=== PATIENT | female | born 1955 | race Caucasian/White ===

== ENCOUNTER 2017-12-15 14:07 | Inpatient (IN) | payer OTHER, SELFPAY ==
[2017-12-15] MEDS ORDERED: ISOVUE-370 76%-LOCM 1 ML ONE (14:19)
[2017-12-15] MEDS ORDERED: hydrOXYzine Pamoate 25 mg Capsule ONE (15:54)
[2017-12-15 16:33] LABS: ALT (SGPT) 21 U/L (8-55); AST (SGOT) 27 U/L (5-34); Albumin 3.4 g/dL (3.4-4.8); Alkaline Phosphatase 114 U/L (40-150); Anion Gap 12 mmol/L (10-20); BUN (Urea Nitrogen) 18 mg/dL (9.8-20.1); Bilirubin, Total 0.4 mg/dL (0.2-1.2); Calc. Creatinine Clearance 0 mL/min (70-130); Calcium 8.8 mg/dL (7.8-10.44); Carbon Dioxide 25 mmol/L (23-31); Chloride 106 mmol/L (98-107); Estimated GFR-MDRD Greater than 90; Globulin 2.3 g/dL (2.4-3.5); Glucose 91 mg/dL (80-115); Potassium 4.3 mmol/L (3.5-5.1); Protein, Total 5.7 g/dL (6.0-8.3); Sodium 139 mmol/L (136-145)
[2017-12-15 16:37] LABS: CKMB 2.5 ng/mL (0-6.6)
--- NOTE | 2017-12-15 17:02 | RAD ---
AP VIEW OF THE CHEST 12/15/17 INDICATION: High blood pressure. COMPARISON: None. FINDINGS: There is moderate sized cardiomegaly. There is pulmonary vascular congestion and interstitial edema. No definite pleural effusion or pneumothorax is evident. There is surgical clips within the left uppe r quadrant of the abdomen. No acute osseous abnormality is evident. IMPRESSION: Findings suggesting mild CHF. POS: [facility]
[2017-12-15 18:20] LABS: #Basophils 0.1 thou/uL (0.0-0.2); #Eosinphils 0.1 thou/uL (0.0-0.7); #Lymphocytes 2.5 thou/uL (1.20-3.40); #Monocytes 0.6 thou/uL (0.11-0.59); #Neutrophils 2.4 thou/uL (1.40-6.50); %Basophils 1.4 % (0.0-1.0); %Eosinophils 2.1 % (0.0-10.0); %Lymphocytes 43.2 % (21.0-51.0); %Monocytes 10.5 % (0.0-10.0); %Neutrophils 42.8 % (42.0-75.0); Hemoglobin 5.8 g/dL (12.0-16.0); Mean Corpuscular HGB CONC 27.5 g/dL (32.0-36.0); Mean Corpuscular Volume 58.1 fl (81.0-99.0); Mean Platelet Volume 5.7 fL (7.4-10.4); Platelet Count 285 thou/uL (130-400); RBC Distribution Width 21.2 % (11.5-14.5); Red Blood Cell (RBC) Count 3.64 mill/uL (4.20-5.40); White Blood Cell (WBC) Count 5.7 thou/uL (4.8-10.8)
[2017-12-15 18:35] LABS: Bilirubin Negative (Negative); Blood, Urine Negative (Negative); Clarity CLEAR (Clear); Glucose, Urine (Dipstick) Negative (Negative); Leukocyte Small (Negative); Nitrite Negative (Negative); Protein, Urine (Dipstick) Negative (Neg-Trace); Specific Gravity, Urine 1.011 (1.002-1.036); Urobilinogen 0.2 mg/dL (0.2-1.0); pH, Urine 7.5 (5.0-9.0)
[2017-12-15 18:36] LABS: Bacteria/HPF None Seen HPF (None Seen); Hyaline Casts/LPF 0-3 HYALINE CAST LPF (0-3 Hyaline); RBC/HPF 0-3 HPF (0-3); Squamous Epithelial 0-3 HPF (0-3)
[2017-12-15 18:39] LABS: Free T4 (Free Thyroxine) 1.84 ng/dL (0.70-1.48)
[2017-12-15 18:48] LABS: INR-International Normal Ratio 1.2
--- NOTE | 2017-12-15 19:48 | CT ---
EXAM: CT ANGIOGRAM OF THE CHEST 12/15/17 HISTORY: Dyspnea. Anxiety. Frequent panic attacks. Increased stress at work and home. COMPARISON: None. TECHNIQUE: CT angiogram of the chest is performed in the axial plane. Bilateral oblique and coronal three dimens ional reformatted image are submitted for interpretation. FINDINGS: No mediastinal mass, lymphadenopathy, or hematoma. Heart is enlarged. No significant pericardial flui d. There are coronary calcifications. The thoracic aorta and upper abdominal aorta have an overall no rmal caliber. No periaortic fat stranding. Trachea and central bronchi are patent. Dependent atelectatic changes are identified. No mass. no con solidation. Calcified granuloma of the left lower lobe is noted. No pneumothorax or osseous abnormali ties. Visualized upper solid organs have appropriate arterial phase enhancement. Previous bariatric s urgical changes noted. Adequate contrast opacification of the pulmonary arterial system to the level of the segmental arteri es. No filling defect to suggest thromboembolism. IMPRESSION: No evidence of pulmonary artery embolism to the level of the segmental arteries. POS: [facility]
[2017-12-15] MEDS ORDERED: Ondansetron ODT 4 MG TAB SL PRN (22:31)
[2017-12-15] MEDS ORDERED: Acetaminophen 325 MG TAB PO PRN (22:31)
[2017-12-15] MEDS ORDERED: Ondansetron HCl/PF 4 MG/2 ML Vial IVP PRN (22:31)
[2017-12-15 22:46] VITALS: BMI 28.0
[2017-12-16 06:24] LABS: Anion Gap 9 mmol/L (10-20); BUN (Urea Nitrogen) 15 mg/dL (9.8-20.1); Calc. Creatinine Clearance 110 mL/min (70-130); Calcium 8.8 mg/dL (7.8-10.44); Carbon Dioxide 24 mmol/L (23-31); Chloride 109 mmol/L (98-107); Estimated GFR-MDRD Greater than 90; Glucose 102 mg/dL (80-115); Potassium 4.2 mmol/L (3.5-5.1); Sodium 138 mmol/L (136-145)
[2017-12-16 06:45] LABS: #Basophils 0.1 thou/uL (0.0-0.2); #Eosinphils 0.2 thou/uL (0.0-0.7); #Lymphocytes 2.1 thou/uL (1.20-3.40); #Monocytes 0.7 thou/uL (0.11-0.59); #Neutrophils 2.2 thou/uL (1.40-6.50); %Basophils 1.8 % (0.0-1.0); %Eosinophils 3.3 % (0.0-10.0); %Lymphocytes 40.2 % (21.0-51.0); %Monocytes 12.7 % (0.0-10.0); %Neutrophils 42.1 % (42.0-75.0); Anisocytosis MARKED = >30 cells (100X) (0-5/hpf); Elliptocytes SLIGHT = 2-5 cells (100X) (0-1/hpf); Hemoglobin 7.5 g/dL (12.0-16.0); Hypochromia MODERATE=16-30 cells (100X) (0-5/hpf); MDiff Complete? YES; Mean Corpuscular HGB CONC 29.2 g/dL (32.0-36.0); Mean Corpuscular Hemoglobin 18.8 pg (27.0-31.0); Mean Corpuscular Volume 64.4 fl (81.0-99.0); Mean Platelet Volume 5.2 fL (7.4-10.4); Microcytosis MODERATE=15-30 cells (100X) (0-5/hpf); PLT Morphology Comment Appears Adequate; Platelet Count 225 thou/uL (130-400); RBC Distribution Width 27.4 % (11.5-14.5); Red Blood Cell (RBC) Count 3.98 mill/uL (4.20-5.40); Reflex for Review?? YES; Tear Drops SLIGHT = 2-5 cells (100X) (0-1/hpf); White Blood Cell (WBC) Count 5.3 thou/uL (4.8-10.8)
--- NOTE | 2017-12-16 08:25 | HP ---
PRIMARY CARE DOCTOR: No primary care doctor. TIME OF EVALUATION: 10:00 p.m. CODE STATUS: FULL CODE. CHIEF COMPLAINT: Shortness of breath. HISTORY OF PRESENT ILLNESS: This is a 62-year-old female patient with past medical history of chronic anemia, gastric bypass surgery, hypertension, came to the hospital after having moderate on and off gradually worsening shortness of breath, exacerbated with exertion, improve with rest, symptoms have been present for the past few weeks, getting worse in the last few days. REVIEW OF SYSTEMS: Constitutional: No fever or chills. Patient reported generalized weakness and fatigue. Respiratory: No cough or sputum production. Patient did have shortness of breath. Cardiovascular: No chest pain, palpitations. She did report exertional shortness of breath. Gastrointestinal : No nausea, vomiting, diarrhea. No blood in the stools. No abdominal pain. Central Nervous System: No dizziness, headache. The patient was feeling lightheaded. Genitourinary: No burning on urination. Extremities: No leg swelling. All other systems were reviewed and were negative except for the findings mentioned above. PAST MEDICAL HISTORY: Please see HPI. SOCIAL HISTORY: The patient lives with family. PAST SURGICAL HISTORY: Gastric bypass. PSYCHIATRIC HISTORY: No previous psychiatric history. SOCIAL HISTORY: Drug use in the past including marijuana, methamphetamine, cigarettes. KNOWN ALLERGIES: SULFA. REPORTED MEDICATIONS: No medications. PHYSICAL EXAMINATION: VITAL SIGNS: On presentation, the patient had a blood pressure 166/83 with a heart rate 89, respiratory rate was 12, temperature 98.8, pain 0, oxygen saturation 100 on room air. GENERAL: Alert, oriented, no acute distress. HEENT: Eye, normal conjunctivae. Moist oral mucosa. NECK: No JVD. RESPIRATORY: Bilateral air entry. No rales, no wheezing. Symmetric expansion. CARDIOVASCULAR: Normal rate and rhythm, no murmurs, no gallop. No edema. ABDOMEN: Soft, normal bowel sounds. MUSCULOSKELETAL: . No tenderness. SKIN: Warm, intact. No pallor, rash or redness. NEUROLOGIC: Baseline mental status. No evidence of any focal weakness. Speech is at baseline. Cranial nerves sensory intact. PSYCHIATRIC: Good mood, no anxiety, oriented, optimal judgment. LABORATORY DATA: Labs were reviewed. The patient had white count 5.7, hemoglobin 5.8, MCV 58.1, platelet count 285. PT 15, INR 1.2, PTT 26. D-dimer is 0.64. Chemistry was reviewed. The patient has sodium 139, potassium 4.3, chloride 106, carbon dioxide 25, anion gap 12, BUN 18, creatinine 0.6, GFR greater than 90. Troponin I 0.010. Beta natriuretic peptide 1203. Serum total protein 5.7, albumin 3.4, globulin 2.3, albumin globulin ratio 1.5. Free T4 1.84, Free T3 4.69. TSH 0.0025. Chest x-ray was reviewed and patient has findings suggestive of mild CHF. The chest thorax CTA was done and reviewed. The patient has no evidence of pulmonary artery embolism to the level of the segmental arteries. ASSESSMENT AND PLAN: 1. The patient presented with severe acute on chronic anemia. The patient has a hemoglobin of 5.8, hematocrit 21.1. The patient receiving blood transfusion, she reported that this problem is chronic. She has never been diagnosed with any previous disease, given low MCV , it seems to be a mixed picture of iron deficiency and possible thalassemia. Further workup can be done as outpatient, patient had transfusion already. 2. Positive D-dimer 0.64. CT angio was negative, PE was ruled out. 3. Elevated beta natriuretic peptide 1203, this can be secondary to severe anemia given heart failure, uncontrolled hypertension. The systolic blood pressure 166/83, patient did not report any history of hypertension, we will monitor as inpatient. 4. Possible primary hyperthyroidism with a low TSH and elevated T3, T4, Thyroid ultrasound was ordered, further studies can be planned can be done as outpatient, patient is asymptomatic at this point. 5. Deep venous thrombosis prophylaxis. MTDD
--- NOTE | 2017-12-16 11:53 | PDOC.PN ---
- Subjective Encounter Start Date: 12/16/17 Encounter Start Time: 11:00 Subjective: wants to know results of tests, still sob - Objective Resuscitation Status: Resuscitation Status FULL:Full Resuscitation MAR Reviewed: Yes Vital Signs & Weight: Vital Signs (12 hours) Temp Pulse Pulse Resp BP BP Pulse Ox 12/16/17 08:20 98.4 F 87 18 164/80 H 98 12/16/17 04:45 97.9 F 86 16 156/87 H 99 12/16/17 02:25 97.6 F 85 16 147/65 H 99 12/16/17 02:04 97.9 F 104 H 16 130/65 I&O: 12/15/17 12/16/17 12/17/17 06:59 06:59 06:59 Intake Total 990 Output Total 1000 Balance -10 Result Diagrams: 12/16/17 05:53 12/16/17 05:53 Radiology Reviewed by me: Yes Phys Exam - Physical Examination anxious but coherent exopthalmous Neck: supple, full ROM Respiratory: clear to auscultation bilateral Cardiovascular: RRR 3/6 ALEJANDRA Gastrointestinal: soft, non-tender Musculoskeletal: no edema, pulses present Neurological: non-focal, moves all 4 limbs Dx/Plan (1) Hyperthyroidism Code(s): E05.90 - THYROTOXICOSIS, UNSP WITHOUT THYROTOXIC CRISIS OR STORM Status: Acute (2) Anxiety Code(s): F41.9 - ANXIETY DISORDER, UNSPECIFIED Status: Chronic (3) AUGUSTINE (dyspnea on exertion) Code(s): R06.09 - OTHER FORMS OF DYSPNEA Status: Acute - Plan cont current plan of care PATIENT WISHES TO TRY HOMEOPATHIC MEDICATIONS AND DO THYROID W/U -: OUTPATIENT. SHE IS WILLING TO WAIT FOR ECHO RESULTS BEFORE D/C * .
[2017-12-16] MEDS ORDERED: Lorazepam 2 MG/ML VIAL SLOW IVP SCH (12:00)
[2017-12-16] MEDS ORDERED: ALPRAZolam 0.5 MG TAB PO SCH (14:00)
[2017-12-16] MEDS: ALPRAZolam 0.5 MG TAB PO SCH (21:16)
[2017-12-17] MEDS: ALPRAZolam 0.5 MG TAB PO SCH (08:38)
[2017-12-17 09:36] VITALS: BP 158/79; TEMP 98.7
--- NOTE | 2017-12-17 21:51 | DIS ---
DATE OF ADMISSION: 12/15/2017 DATE OF DISCHARGE: 12/17/2017 PRIMARY DISCHARGE DIAGNOSES: 1. Panic anxiety disorder. 2. Diastolic heart failure. 3. Substance abuse. 4. Hypertension. 5. Severe chronic anemia. HOSPITAL COURSE: The patient was admitted after presenting with complaints of excessive shortness of breath with exertion. The patient also reported a history of anxiety and panic disorder. The patie nt also reported increased stressors at home and on her job. The patient was seen and assessed by e appropriate services. An echocardiogram and CTA was ordered, which showed no evidence of pulmonary artery embolism. Echocardiogram showed an ejection fraction of 50-55% with moderate left atrial dil atation, moderately enlarged right atrium, moderate mitral regurgitation with moderate to severe tric uspid regurgitation. The patient was noted to have hemoglobin of 5.8 upon admission. The patient re ceived a transfusion of 2 units of packed red blood cells. CONSULTATIONS: None. PROCEDURES: Chest CTA as well as echocardiogram, results described above in hospital course. DISCHARGE DISPOSITION: To home. DISCHARGE DIET: Cardiac, heart healthy. DISCHARGE MEDICATIONS: Please see medication reconciliation list. PHYSICAL EXAMINATION: GENERAL: She is mildly anxious, but better than she presented on admission. EYES: Exophthalmos, otherwise PERRL. CARDIAC: Regular rate and rhythm. LUNGS: Clear to auscultation. ABDOMEN: Nontender, nondistended. EXTREMITIES: No clubbing, cyanosis or edema. FOLLOWUP: The patient is to follow up with her PCP within 1-2 weeks. 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
--- NOTE | 2017-12-23 17:23 | EKG ---
Test Reason : SOB Blood Pressure : / mmHG Vent. Rate : 097 BPM Atrial Rate : 097 BPM P-R Int : 128 ms QRS Dur : 072 ms QT Int : 360 ms P-R-T Axes : 010 036 056 degrees QTc Int : 457 ms Sinus rhythm with Premature atrial complexes with Abberant conduction Otherwise normal ECG Confirmed by JAQUAN LOPEZ, CLIF Yousif ([id number]), fan mail editor NANETTE WATERS ([id number]) on 12/23/2017 5:23:00 PM Referred By: Confirmed By:CLIF PARTIDA MD
== END 2017-12-17 11:40 | disposition home or self-care (01) | DRG 812 ==
LOC: ERS 14:07 → 2NO 22:11
PROVIDERS: ADMIT Hospitalist; ATTEND Hospitalist
PROC: 30233N1 Transfusion of Nonautologous Red Blood Cells into Peripheral Vein, Percutaneous Approach (ICD-10-PCS; principal; 2017-12-15)
DX: D53.9 Nutritional anemia, unspecified (principal); I11.0 Hypertensive heart disease with heart failure; I50.30 Unspecified diastolic (congestive) heart failure; F41.0 Panic disorder [episodic paroxysmal anxiety]; E05.80 Other thyrotoxicosis without thyrotoxic crisis or storm
CPT/HCPCS: 36415; 36430; 71045; 71275; 80048; 80053; 81003; 81015; 82274; 82553; 83880; 84439; 84443; 84481; 84484; 85025; 85060; 85379; 85610; 85730; 86850; 86900; 86901; 93005; 93306; 99406; A4216; J2060; P9016; Q0177